=== PATIENT | female | born 1975 | race African-American/Black ===

== ENCOUNTER 2018-05-10 08:35 | Inpatient (IN) | payer MEDICAID ==
[~2018-05-10] VITALS: Ht 167.6 cm; Wt 54.0 kg
[~2018-05-10 08:35] MED LIST: INSLIS SUBCUT; INSU3INS6 SUBCUT; LISI-604 PO
[2018-05-10] MEDS ORDERED: ONDANSETRON HCL 4MG/2ML INJ IV STA (08:53)
[2018-05-10] MEDS ORDERED: FAMOTIDINE 20MG/2ML VIAL IV ONE (09:00)
[2018-05-10] MEDS ORDERED: SODIUM CHLORIDE 0.9% 1000ML BAG (SEPSIS BOLUS) IV ONE (09:00)
[2018-05-10] MEDS ORDERED: MORPHINE SULFATE 2 MG/ML CPJ (NOT FOR IM USE) IV ONE (09:15)
[2018-05-10 09:16] LABS: BASOPHILS % 0.4 % (0.0-2.0); HEMATOCRIT. 44.3 % (36.0-48.0); HEMOGLOBIN. 14.3 g/dL (12.0-16.0); MEAN CORPUSCULAR HEMOGLOBIN 26.7 pg (28.0-32.0); MEAN CORPUSCULAR VOLUME 82.8 fL (81.0-99.0); MEAN PLATELET VOLUME 7.7 fl (7.4-10.4); MONOCYTES % 4.8 % (2.0-8.0); NEUTROPHILS % 82.8 % (40.0-76.0); PLATELET 440 x1000/uL (130-400); RED BLOOD CELL COUNT 5.34 mill/uL (4.2-5.4); RED CELL DISTRIBUTION WIDTH 15.5 % (11.6-14.6)
[2018-05-10 09:23] LABS: CHLORIDE 87 mEq/L (98-107)
[2018-05-10 09:25] LABS: PARTIAL THROMBOPLASTIN TIME 24.3 sec (23.4-31.0); PROTHROMBIN TIME 9.7 sec (9.1-11.1)
[2018-05-10 09:30] LABS: BETA HYDROXYBUTYRATE 8.1 mMol/L (0.0-0.3)
[2018-05-10 09:34] LABS: CREATINE KINASE 84 IU/L (26-192)
[2018-05-10 09:35] LABS: BG BASE EXCESS -9.2 mmol/L (-2.0-2.0); BG CARBOXYHEMOGLOBIN 0.8 % (0.5-1.5); BG DEOXYHEMOGLOBIN 2.3 % (0.0-5.0); BG FRACTION INSPIRED OXYGEN 21; BG HCO3 ACT 14.7 mmol/L (22.0-26.0); BG METHEMOGLOBIN 0.3 % (0.0-1.5); BG OXYGEN SATURATION 97.7 % (92.0-98.5); BG OXYHEMOGLOBIN 96.6 % (94.0-97.0); BG PCO2 27.2 mmHg (35.0-45.0); BG PH 7.352 (7.350-7.450); BG PO2 109.4 mmHg (75.0-100.0); BG SAMPLE SITE RIGHT BRACHIAL; BG VENT MODE ROOM AIR
[2018-05-10 09:37] LABS: HCG SCREEN NEGATIVE
[2018-05-10] MEDS ORDERED: MORPHINE SULFATE 4 MG/ML CPJ (NOT FOR IM USE) IV ONE (09:41)
[2018-05-10] MEDS ORDERED: SODIUM CHLORIDE 0.9% 1,000 ML IV ONE (09:42)
[2018-05-10] MEDS ORDERED: INSULIN REGULAR (DRIP) 100 UNITS in SODIUM CHLORIDE 0.9% 100 ML IV ONE (09:45)
[2018-05-10] MEDS ORDERED: INSULIN REGULAR (DRIP) 100 UNITS in SODIUM CHLORIDE 0.9% 100 ML IV SCH ×2 (09:45→10:15)
[2018-05-10] MEDS ORDERED: SODIUM CHLORIDE 0.45% 1,000 ML IV SCH (10:07)
[2018-05-10] MEDS ORDERED: IPRATROPIUM/ALBUTEROL 0.5-3(2.5)MG/3ML NEB INH PRN (10:15)
[2018-05-10] MEDS ORDERED: HYDROCODONE/ACETAMINOPHEN 5/325MG TABLET PO PRN (10:15)
[2018-05-10] MEDS ORDERED: GUAIFENESIN 200MG/10ML SUGAR FREE UDC PO PRN (10:15)
[2018-05-10] MEDS ORDERED: CLONIDINE 0.1MG TABLET PO PRN (10:15)
[2018-05-10] MEDS ORDERED: DOCUSATE SODIUM 100MG CAPSULE PO PRN (10:15)
[2018-05-10] MEDS ORDERED: DIPHENHYDRAMINE 50MG/ML VIAL IV PRN (10:15)
[2018-05-10] MEDS ORDERED: ONDANSETRON HCL 4MG/2ML INJ IV PRN (10:15)
[2018-05-10] MEDS ORDERED: ACETAMINOPHEN 325MG TABLET PO PRN (10:15)
[2018-05-10] MEDS ORDERED: NA PHOS,M-B/NA PHOS,DI-BA ENEMA 118ML PR PRN (10:15)
[2018-05-10] MEDS ORDERED: MAGNESIUM/ALUMINUM HYDROXIDE/SIMETHICONE 30ML UDC PO PRN (10:15)
[2018-05-10] MEDS ORDERED: LORAZEPAM 2MG/ML CPJ IV PRN (10:15)
[2018-05-10] MEDS: MORPHINE SULFATE 4 MG/ML CPJ (NOT FOR IM USE) IV PRN ×2 (13:54→21:00)
[2018-05-10 15:19] LABS: CLARITY URINE CLEAR (CLEAR); COLOR URINE YELLOW (YELLOW); KETONES URINE 1+ (NEGATIVE); LEUKOCYTE ESTERASE URINE NEGATIVE (NEGATIVE); NITRITE URINE NEGATIVE (NEGATIVE); OCCULT BLOOD URINE 1+ (NEGATIVE); PH URINE 5.5 (4.5-8.0); PROTEIN URINE 3+ (NEGATIVE); SPECIFIC GRAVITY URINE 1.022 (1.005-1.030); UROBILINOGEN URINE 0.2 E.U./dL (0.2-1.0)
[2018-05-10 15:33] LABS: *AMPHETAMINES SCREEN URINE NEGATIVE (NEGATIVE); *BARBITURATES SCREEN URINE NEGATIVE (NEGATIVE); *BENZODIAZEPINES SCREEN URINE NEGATIVE (NEGATIVE); *COCAINE SCREEN URINE NEGATIVE (NEGATIVE); METHADONE URINE SCREEN NEGATIVE (NEGATIVE)
[2018-05-10 15:34] LABS: CANNABINOID URINE SCREEN NEGATIVE (NEGATIVE)
[2018-05-10 15:38] LABS: OPIATES URINE SCREEN PRESUMTIVE POSITIVE (NEGATIVE); PHENCYCLIDINE URINE SCREEN PRESUMTIVE POSITIVE (NEGATIVE)
[2018-05-10] MEDS ORDERED: SODIUM CHLORIDE 0.9% 1,000 ML IV SCH (16:45)
[2018-05-10] MEDS: SODIUM CHLORIDE 0.45% 1,000 ML IV SCH (21:00)
[2018-05-10 22:10] VITALS: BP 134/83
[2018-05-10 22:15] VITALS: BP 126/60
[2018-05-10 22:30] VITALS: BP 139/85
[2018-05-10 23:00] VITALS: BP 135/65
[2018-05-10] MEDS: FLUTICASONE PROPIONATE 50MCG/SPRAY BOTTLE BOTHNSTRLS SCH (23:00)
[2018-05-11] VITALS (17 sets, daily range): BP systolic 106–165; BP diastolic 48–91
[2018-05-11] MEDS ORDERED: LEVOFLOXACIN 500MG PREMIX 100 ML IV NR
[2018-05-11] MEDS ORDERED: INSULIN REGULAR (DRIP) 100 UNITS in SODIUM CHLORIDE 0.9% 100 ML IV SCH (00:24)
[2018-05-11] MEDS ORDERED: BLOOD SUGAR DIAGNOSTIC STRIP TEST SCH (00:30)
[2018-05-11] MEDS ORDERED: DEXTROSE 50% WATER 50ML SYRINGE IV PRN ×3 (00:30→01:45)
[2018-05-11] MEDS ORDERED: INSULIN LISPRO 100 UNITS/ML SUBCUT SCH (01:45)
[2018-05-11] MEDS: METOCLOPRAMIDE HCL 10MG/2ML VIAL IV SCH ×5 (01:55→23:33)
[2018-05-11] MEDS: BLOOD SUGAR DIAGNOSTIC STRIP TEST SCH ×4 (06:12→20:15)
[2018-05-11 06:19] LABS: BASOPHILS % 0.4 % (0.0-2.0); EOSINOPHILS % 0.6 % (0.0-5.0); HEMATOCRIT. 36.1 % (36.0-48.0); HEMOGLOBIN. 11.7 g/dL (12.0-16.0); LYMPHOCYTES % 19.4 % (20.0-50.0); MEAN CORPUSCULAR HEMOGLOBIN 26.2 pg (28.0-32.0); MEAN CORPUSCULAR VOLUME 80.7 fL (81.0-99.0); MEAN PLATELET VOLUME 7.5 fl (7.4-10.4); MONOCYTES % 5.2 % (2.0-8.0); NEUTROPHILS % 74.4 % (40.0-76.0); PLATELET 291 x1000/uL (130-400); RED BLOOD CELL COUNT 4.47 mill/uL (4.2-5.4); RED CELL DISTRIBUTION WIDTH 15.4 % (11.6-14.6)
[2018-05-11] MEDS: SODIUM CHLORIDE 0.45% 1,000 ML IV SCH (06:22)
[2018-05-11 06:23] LABS: CHLORIDE 101 mEq/L (98-107)
[2018-05-11] MEDS: INSULIN LISPRO 100 UNITS/ML SUBCUT SCH ×4 (06:31→20:22)
[2018-05-11 06:36] LABS: LDL CHOLESTEROL 168 mg/dL (5-100)
[2018-05-11 06:37] LABS: HDL CHOLESTEROL 49 mg/dL (40-59); T4 FREE 1.09 ng/dL (0.76-1.46)
[2018-05-11] MEDS: MORPHINE SULFATE 4 MG/ML CPJ (NOT FOR IM USE) IV PRN ×3 (07:16→20:10)
[2018-05-11] MEDS: FLUTICASONE PROPIONATE 50MCG/SPRAY BOTTLE BOTHNSTRLS SCH ×2 (08:57→20:31)
[2018-05-11] MEDS: ENOXAPARIN 30MG/0.3ML SYR SUBCUT SCH (08:58)
[2018-05-11] MEDS: ASPIRIN 81MG EC TABLET PO SCH (08:58)
[2018-05-11] MEDS: AMLODIPINE 5MG TABLET PO SCH ×2 (08:58→20:10)
[2018-05-11] MEDS ORDERED: ATORVASTATIN CALCIUM 20MG TABLET PO SCH (21:00)
[2018-05-11] MEDS ORDERED: LEVOFLOXACIN 250MG PREMIX 50 ML IV SCH (23:00)
[2018-05-12 00:11] VITALS: BP 133/69
[2018-05-12] MEDS: MORPHINE SULFATE 4 MG/ML CPJ (NOT FOR IM USE) IV PRN ×2 (00:27→05:17)
[2018-05-12 04:00] VITALS: BP 143/74
[2018-05-12] MEDS: METOCLOPRAMIDE HCL 10MG/2ML VIAL IV SCH ×2 (05:16→12:38)
[2018-05-12] MEDS: BLOOD SUGAR DIAGNOSTIC STRIP TEST SCH ×2 (06:00→11:54)
[2018-05-12] MEDS: INSULIN LISPRO 100 UNITS/ML SUBCUT SCH ×2 (06:32→11:54)
[2018-05-12 06:45] LABS: BASOPHILS % 0.5 % (0.0-2.0); EOSINOPHILS % 0.6 % (0.0-5.0); HEMATOCRIT. 33.9 % (36.0-48.0); LYMPHOCYTES % 30.7 % (20.0-50.0); MEAN CORPUSCULAR HEMOGLOBIN 26.6 pg (28.0-32.0); MEAN CORPUSCULAR VOLUME 82.1 fL (81.0-99.0); MEAN PLATELET VOLUME 7.9 fl (7.4-10.4); MONOCYTES % 6.6 % (2.0-8.0); NEUTROPHILS % 61.6 % (40.0-76.0); PLATELET 240 x1000/uL (130-400); RED BLOOD CELL COUNT 4.13 mill/uL (4.2-5.4)
[2018-05-12] MEDS ORDERED: INSULIN GLARGINE UD 100 UNITS/ML SYR SUBCUT SCH (07:00)
[2018-05-12] MEDS: ASPIRIN 81MG EC TABLET PO SCH (08:56)
[2018-05-12] MEDS: FLUTICASONE PROPIONATE 50MCG/SPRAY BOTTLE BOTHNSTRLS SCH (08:56)
[2018-05-12] MEDS: ENOXAPARIN 30MG/0.3ML SYR SUBCUT SCH (08:56)
[2018-05-12] MEDS: AMLODIPINE 5MG TABLET PO SCH (09:00)
[2018-05-12 10:13] VITALS: BP 121/78
== END 2018-05-12 14:35 | disposition home or self-care (01) | DRG 380 ==
LOC: ER 08:47 → CVICU 09:43 → EDBEDREQ 09:45 → EDBEDREQSVC 09:45 → EDBEDREQTM 09:45 → ENRESERV 17:30 → CANRESERV 17:30 → ENRESERV 21:02 → 7WST 05-11 11:15
PROVIDERS: ADMIT Internal Medicine; ATTEND Internal Medicine
PROC: 0JBR0ZZ Excision of Left Foot Subcutaneous Tissue and Fascia, Open Approach (ICD-10-PCS; principal; 2018-05-11)
DX: E10.621 Type 1 diabetes mellitus with foot ulcer (principal); L97.529 Non-pressure chronic ulcer of other part of left foot with unspecified severity; N17.0 Acute kidney failure with tubular necrosis; E10.10 Type 1 diabetes mellitus with ketoacidosis without coma; E46 Unspecified protein-calorie malnutrition; R65.10 Systemic inflammatory response syndrome (SIRS) of non-infectious origin without acute organ dysfunction; K31.84 Gastroparesis; E10.43 Type 1 diabetes mellitus with diabetic autonomic (poly)neuropathy; E87.5 Hyperkalemia; E87.1 Hypo-osmolality and hyponatremia; D64.9 Anemia, unspecified; E78.00 Pure hypercholesterolemia, unspecified; E78.5 Hyperlipidemia, unspecified; E86.0 Dehydration; K30 Functional dyspepsia; K59.00 Constipation, unspecified; F41.9 Anxiety disorder, unspecified; F16.10 Hallucinogen abuse, uncomplicated; F17.210 Nicotine dependence, cigarettes, uncomplicated; I10 Essential (primary) hypertension; Z79.4 Long term (current) use of insulin; Z68.1 Body mass index [BMI] 19.9 or less, adult; Z79.899 Other long term (current) drug therapy; Z82.49 Family history of ischemic heart disease and other diseases of the circulatory system; Z83.3 Family history of diabetes mellitus; Z91.14 Patient's other noncompliance with medication regimen; Z91.19 Patient's noncompliance with other medical treatment and regimen
CPT/HCPCS: 36415; 36600; 71045; 73630; 74176; 76770; 80048; 80061; 80305; 82010; 82375; 82550; 82553; 82805; 82962; 83605; 83735; 83880; 83930; 83935; 84145; 84439; 84443; 84484; 84703; 87804; 93005; 93306; 96374; 96375; 99285; J1650; J1815; J1956; J2060; J2270; J2405; J2765; J3490; J7030; J7050; A4315

== ENCOUNTER 2018-08-18 19:14 | Inpatient (IN) | payer MEDICAID ==
[~2018-08-18] VITALS: Ht 165.1 cm; Wt 54.4 kg
[2018-08-18] MEDS ORDERED: ONDANSETRON HCL 4MG/2ML INJ IV STA (20:03)
[2018-08-18] MEDS ORDERED: SODIUM CHLORIDE 0.9% 1000ML BAG (SEPSIS BOLUS) IV ONE (20:15)
[2018-08-18] MEDS ORDERED: FAMOTIDINE 20MG/2ML VIAL IV ONE (20:15)
[2018-08-18] MEDS ORDERED: LORAZEPAM 2MG/ML CPJ IV ONE (20:45)
[2018-08-18 20:56] LABS: BG BASE EXCESS -18.6 mmol/L (-2.0-2.0); BG CARBOXYHEMOGLOBIN 0.6 % (0.5-1.5); BG FRACTION INSPIRED OXYGEN 21; BG HCO3 ACT 7.2 mmol/L (22.0-26.0); BG METHEMOGLOBIN 0.3 % (0.0-1.5); BG OXYHEMOGLOBIN 97.1 % (94.0-97.0); BG PCO2 18.9 mmHg (35.0-45.0); BG PO2 128.4 mmHg (75.0-100.0); BG SAMPLE SITE RIGHT RADIAL; BG VENT MODE ROOM AIR
[2018-08-18] MEDS ORDERED: INSULIN REGULAR (DRIP) 100 UNITS in SODIUM CHLORIDE 0.9% 100 ML IV ONE ×3 (21:00→22:30)
[2018-08-18 21:10] LABS: MEAN CORPUSCULAR HEMOGLOBIN 28.2 pg (28.0-32.0); MEAN CORPUSCULAR VOLUME 87.6 fL (81.0-99.0); PLATELET 74 x1000/uL (130-400); RED BLOOD CELL COUNT 1.07 mill/uL (4.2-5.4); RED CELL DISTRIBUTION WIDTH 13.2 % (11.6-14.6)
[2018-08-18 21:17] LABS: CHLORIDE 141 mEq/L (98-107)
[2018-08-18 21:21] LABS: HEMATOCRIT. 9.3 % (36.0-48.0)
[2018-08-18 21:22] LABS: ETHANOL BLOOD < 10 mg/dL
[2018-08-18 21:27] LABS: BETA HYDROXYBUTYRATE 1.6 mMol/L (0.0-0.3)
[2018-08-18 21:29] LABS: INR 3.3; PROTHROMBIN TIME 32.6 sec (9.6-11.0)
[2018-08-18 21:41] LABS: HCG SCREEN NEGATIVE
[2018-08-18 21:54] LABS: HEMATOCRIT. 44.8 % (36.0-48.0); HEMOGLOBIN. 13.9 g/dL (12.0-16.0); MEAN CORPUSCULAR HEMOGLOBIN 27.2 pg (28.0-32.0); MEAN CORPUSCULAR VOLUME 87.7 fL (81.0-99.0); MEAN PLATELET VOLUME 8.6 fl (7.4-10.4); PLATELET 307 x1000/uL (130-400); RED BLOOD CELL COUNT 5.11 mill/uL (4.2-5.4); RED CELL DISTRIBUTION WIDTH 13.8 % (11.6-14.6)
[2018-08-18] MEDS ORDERED: MAGNESIUM 2 G PREMIX 50 ML IV ONE (22:00)
[2018-08-18] MEDS ORDERED: KCL 20MEQ/100ML PREMIX 100 ML IV ONE (22:00)
[2018-08-18] MEDS ORDERED: POTASSIUM CHLORIDE 20MEQ TABLET SR PO ONE (22:00)
[2018-08-18 22:04] LABS: PLATELET ESTIMATE DECREASED
[2018-08-18 22:12] LABS: CHLORIDE 88 mEq/L (98-107)
[2018-08-18 22:15] LABS: ETHANOL BLOOD < 10 mg/dL
[2018-08-18 22:16] LABS: PROTHROMBIN TIME 10.3 sec (9.6-11.0)
[2018-08-18 22:16] LABS: PLATELET ESTIMATE NORMAL
[2018-08-18 22:19] LABS: BETA HYDROXYBUTYRATE 8.9 mMol/L (0.0-0.3)
[2018-08-18 22:20] LABS: TOTAL IRON BINDING CAPACITY 285 ug/dL (250-450)
[2018-08-18] MEDS ORDERED: INSULIN REGULAR (HUMULIN R) 300UNITS/3ML IV ONE (22:30)
[2018-08-18] MEDS ORDERED: CALCIUM CHLORIDE 1GM/10ML SYR IV ONE (22:30)
[2018-08-18] MEDS ORDERED: SODIUM POLYSTYRENE SULFONATE 15 G/60 ML BOT PO ONE (22:30)
[2018-08-18] MEDS ORDERED: DEXTROSE 50% WATER 50ML SYRINGE IV ONE (22:30)
[2018-08-18] MEDS ORDERED: SODIUM BICARBONATE 8.4% 1 MEQ/ML 50ML SYR IV ONE (22:30)
[2018-08-18] MEDS ORDERED: ALBUTEROL (0.083%) 2.5MG/3ML NEB HHN ONE (22:30)
[2018-08-18 23:01] LABS: HEMATOCRIT 37.8 % (36.0-48.0); HEMOGLOBIN 11.9 g/dL (12.0-16.0); MEAN CORPUSCULAR HEMOGLOBIN 27.1 pg (28.0-32.0); MEAN CORPUSCULAR VOLUME 86.3 fL (81.0-99.0); PLATELET 261 x1000/uL (130-400); RED BLOOD CELL COUNT 4.38 mill/uL (4.2-5.4); RED CELL DISTRIBUTION WIDTH 13.9 % (11.6-14.6)
[2018-08-18 23:02] LABS: CLARITY URINE CLEAR (CLEAR); COLOR URINE YELLOW (YELLOW); KETONES URINE 1+ (NEGATIVE); LEUKOCYTE ESTERASE URINE NEGATIVE (NEGATIVE); NITRITE URINE NEGATIVE (NEGATIVE); OCCULT BLOOD URINE NEGATIVE (NEGATIVE); PROTEIN URINE 2+ (NEGATIVE); SPECIFIC GRAVITY URINE 1.022 (1.005-1.030); UROBILINOGEN URINE 0.2 E.U./dL (0.2-1.0)
[2018-08-18 23:17] LABS: *AMPHETAMINES SCREEN URINE NEGATIVE (NEGATIVE); *BARBITURATES SCREEN URINE NEGATIVE (NEGATIVE); *BENZODIAZEPINES SCREEN URINE NEGATIVE (NEGATIVE); *COCAINE SCREEN URINE NEGATIVE (NEGATIVE); CANNABINOID URINE SCREEN NEGATIVE (NEGATIVE); METHADONE URINE SCREEN NEGATIVE (NEGATIVE); OPIATES URINE SCREEN NEGATIVE (NEGATIVE)
[2018-08-18 23:20] LABS: PHENCYCLIDINE URINE SCREEN PRESUMTIVE POSITIVE (NEGATIVE)
[2018-08-18 23:42] VITALS: BP 179/94
[2018-08-18 23:45] VITALS: BP_SYST 179; BP_SYST 192; BP_DIAS 100; BP_DIAS 94
[2018-08-19] VITALS (61 sets, daily range): BP systolic 111–206; BP diastolic 53–97
[2018-08-19] MEDS ORDERED: SODIUM CHLORIDE 0.9% 1,000 ML IV SCH (00:04)
[2018-08-19] MEDS ORDERED: ACETAMINOPHEN 650MG SUPP PR PRN (00:15)
[2018-08-19] MEDS ORDERED: ONDANSETRON HCL 4MG/2ML INJ IV PRN (00:15)
[2018-08-19] MEDS ORDERED: IPRATROPIUM/ALBUTEROL 0.5-3(2.5)MG/3ML NEB INH PRN (00:15)
[2018-08-19] MEDS ORDERED: PIPERACILLIN/TAZ 3.375G PREMIX 50 ML IV SCH (00:15)
[2018-08-19] MEDS ORDERED: LORAZEPAM 2MG/ML CPJ IV PRN (00:15)
[2018-08-19] MEDS ORDERED: INSULIN REGULAR (DRIP) 100 UNITS in SODIUM CHLORIDE 0.9% 100 ML IV SCH (00:15)
[2018-08-19] MEDS: HYDRALAZINE 20MG/ML VIAL IV PRN ×3 (00:28→15:54)
[2018-08-19] MEDS ORDERED: DEXT 5%/0.9% NACL KCL 20MEQ/L 1,000 ML IV PRN (01:15)
[2018-08-19] MEDS ORDERED: DEXT 5%/0.9% NACL 1,000 ML IV PRN (01:15)
[2018-08-19] MEDS ORDERED: SODIUM CHL 0.9% + KCL 20MEQ/L 1,000 ML IV PRN (01:15)
[2018-08-19] MEDS ORDERED: DEXTROSE 50% WATER 50ML SYRINGE IV PRN ×3 (02:00→10:30)
[2018-08-19] MEDS: BLOOD SUGAR DIAGNOSTIC STRIP TEST SCH ×13 (02:12→20:02)
[2018-08-19] MEDS: PIPERACILLIN/TAZ 2.25G PREMIX 50 ML IV SCH ×4 (03:21→20:04)
[2018-08-19] MEDS: INSULIN REGULAR (DRIP) 100 UNITS in SODIUM CHLORIDE 0.9% 100 ML IV SCH ×2 (03:36→08:42)
[2018-08-19 06:01] LABS: PHOSPHORUS 3.3 mg/dL (2.5-4.9)
[2018-08-19 06:07] LABS: CREATINE KINASE MB FRACTION 11.1 ng/mL (0.5-3.6)
[2018-08-19] MEDS ORDERED: ENOXAPARIN 40MG/0.4ML SYR SUBCUT SCH (09:00)
[2018-08-19] MEDS: ENOXAPARIN 30MG/0.3ML SYR SUBCUT SCH (09:26)
[2018-08-19] MEDS ORDERED: INSULIN GLARGINE UD 100 UNITS/ML SYR SUBCUT SCH (10:45)
[2018-08-19] MEDS: DEXT 5%/0.45% NACL KCL 20MEQ/L 1,000 ML IV SCH (15:27)
[2018-08-19 15:35] LABS: CREATINE KINASE MB FRACTION 18.2 ng/mL (0.5-3.6)
[2018-08-19] MEDS: INSULIN LISPRO 100 UNITS/ML SUBCUT SCH ×2 (17:30→20:04)
[2018-08-19] MEDS ORDERED: METOPROLOL TARTRATE 50MG TABLET PO NR (18:15)
[2018-08-19] MEDS ORDERED: AMLODIPINE 2.5MG TABLET PO SCH (21:00)
[2018-08-19] MEDS: INSULIN GLARGINE UD 100 UNITS/ML SYR SUBCUT SCH (21:13)
[2018-08-20 00:18] VITALS: BP 136/77
[2018-08-20] MEDS: PIPERACILLIN/TAZ 2.25G PREMIX 50 ML IV SCH ×4 (03:26→20:31)
[2018-08-20] MEDS: DEXT 5%/0.45% NACL KCL 20MEQ/L 1,000 ML IV SCH (03:26)
[2018-08-20 04:00] VITALS: BP 114/70
[2018-08-20 07:23] LABS: BASOPHILS % 0.4 % (0.0-2.0); EOSINOPHILS % 0.1 % (0.0-5.0); HEMATOCRIT. 37.4 % (36.0-48.0); HEMOGLOBIN. 12.2 g/dL (12.0-16.0); LYMPHOCYTES % 14.7 % (20.0-50.0); MEAN CORPUSCULAR HEMOGLOBIN 26.7 pg (28.0-32.0); MEAN CORPUSCULAR VOLUME 81.6 fL (81.0-99.0); MEAN PLATELET VOLUME 8.2 fl (7.4-10.4); NEUTROPHILS % 80.8 % (40.0-76.0); PLATELET 288 x1000/uL (130-400); RED BLOOD CELL COUNT 4.58 mill/uL (4.2-5.4); RED CELL DISTRIBUTION WIDTH 13.8 % (11.6-14.6)
[2018-08-20] MEDS: BLOOD SUGAR DIAGNOSTIC STRIP TEST SCH ×4 (07:23→20:22)
[2018-08-20 07:47] LABS: PHOSPHORUS 2.7 mg/dL (2.5-4.9)
[2018-08-20] MEDS ORDERED: METOPROLOL TARTRATE 50MG TABLET PO SCH (09:00)
[2018-08-20] MEDS: ENOXAPARIN 30MG/0.3ML SYR SUBCUT SCH (09:30)
[2018-08-20] MEDS: ASPIRIN 81MG TABLET PO SCH (09:30)
[2018-08-20] MEDS: INSULIN LISPRO 100 UNITS/ML SUBCUT SCH ×4 (09:32→20:32)
[2018-08-20] MEDS: INSULIN GLARGINE UD 100 UNITS/ML SYR SUBCUT SCH ×2 (09:33→21:24)
[2018-08-20] MEDS: SODIUM CHLORIDE 0.45% 1,000 ML IV SCH ×2 (12:43→22:58)
[2018-08-20] MEDS: HYDROCODONE/ACETAMINOPHEN 5/325MG TABLET PO PRN ×2 (14:53→21:24)
[2018-08-20 14:55] LABS: PROTHROMBIN TIME 10.1 sec (9.6-11.0)
[2018-08-20 20:00] VITALS: BP 131/70
[2018-08-20] MEDS ORDERED: ACETAMINOPHEN 325MG TABLET PO PRN (20:45)
[2018-08-20] MEDS ORDERED: AMLODIPINE 5MG TABLET PO SCH (21:00)
[2018-08-21] VITALS: BP 140/75
[2018-08-21] MEDS: PIPERACILLIN/TAZ 2.25G PREMIX 50 ML IV SCH ×3 (02:49→15:00)
[2018-08-21 04:00] VITALS: BP 121/66
[2018-08-21 04:16] LABS: HIV SCREEN 4G Non Reactive (Non Reactive)
[2018-08-21] MEDS: HYDROCODONE/ACETAMINOPHEN 5/325MG TABLET PO PRN ×2 (05:48→11:23)
[2018-08-21 06:03] LABS: BASOPHILS % 0.5 % (0.0-2.0); EOSINOPHILS % 0.8 % (0.0-5.0); HEMATOCRIT. 33.1 % (36.0-48.0); HEMOGLOBIN. 11.1 g/dL (12.0-16.0); MEAN CORPUSCULAR HEMOGLOBIN 27.5 pg (28.0-32.0); MEAN CORPUSCULAR VOLUME 82.1 fL (81.0-99.0); MEAN PLATELET VOLUME 7.9 fl (7.4-10.4); MONOCYTES % 4.8 % (2.0-8.0); NEUTROPHILS % 57.9 % (40.0-76.0); PLATELET 230 x1000/uL (130-400); RED BLOOD CELL COUNT 4.03 mill/uL (4.2-5.4); RED CELL DISTRIBUTION WIDTH 13.8 % (11.6-14.6)
[2018-08-21] MEDS: BLOOD SUGAR DIAGNOSTIC STRIP TEST SCH ×3 (07:02→17:40)
[2018-08-21 07:24] LABS: PHOSPHORUS 2.5 mg/dL (2.5-4.9)
[2018-08-21 08:00] VITALS: BP 127/68
[2018-08-21] MEDS: INSULIN LISPRO 100 UNITS/ML SUBCUT SCH ×3 (08:10→18:10)
[2018-08-21] MEDS ORDERED: ENOXAPARIN 40MG/0.4ML SYR SUBCUT SCH (09:00)
[2018-08-21 09:08] LABS: ABSOLUTE MONOCYTES 0.6 x10E3/uL (0.1-0.9); ABSOLUTE NEUTROPHILS 10.9 x10E3/uL (1.4-7.0); BASOPHILS 0 % (Not Estab.); HEMATOCRIT 36.1 % (34.0-46.6); HEMOGLOBIN 11.9 g/dL (11.1-15.9); IMMATURE GRANULOCYTES 0 % (Not Estab.); LYMPHOCYTES 15 % (Not Estab.); MEAN CORPUSCULAR HEMOGLOBIN 26.9 pg (26.6-33.0); MEAN CORPUSCULAR VOLUME 82 fL (79-97); MONOCYTES 4 % (Not Estab.); NEUTROPHILS 81 % (Not Estab.); PLATELETS 286 x10E3/uL (150-450); RBC 4.43 x10E6/uL (3.77-5.28); RED CELL DISTRIBUTION WIDTH 14.2 % (12.3-15.4); WBC 13.5 x10E3/uL (3.4-10.8)
[2018-08-21] MEDS: ASPIRIN 81MG TABLET PO SCH (09:28)
[2018-08-21] MEDS: SODIUM CHLORIDE 0.45% 1,000 ML IV SCH (09:44)
[2018-08-21] MEDS ORDERED: INSULIN GLARGINE UD 100 UNITS/ML SYR SUBCUT SCH (10:00)
[2018-08-21] MEDS ORDERED: SODIUM CHLORIDE 0.9% 1,000 ML IV SCH (11:15)
[2018-08-21 12:00] VITALS: BP 125/68
[2018-08-21 13:16] LABS: % CD 3 POS. LYMPHOCYTES 85.1 % (57.5-86.2); % CD 4 POS. LYMPHOCYTES 50.9 % (30.8-58.5); % CD 8 POS. LYMPH 35.4 % (12.0-35.5); ABSOLUTE CD 3 1702 /uL (622-2402); ABSOLUTE CD 4 HELPER 1018 /uL (359-1519); ABSOLUTE CD 8 SUPPRESSOR 708 /uL (109-897); CD4/CD8 RATIO 1.44 (0.92-3.72)
[2018-08-21] MEDS ORDERED: LANTUSUD SUBCUT (14:14)
[2018-08-21] MEDS ORDERED: AMLO5TAB88 PO (14:14)
[2018-08-21 16:00] VITALS: BP 123/68
[2018-08-21 18:59] VITALS: BP 128/68
== END 2018-08-21 22:00 | disposition home or self-care (01) | DRG 420 ==
LOC: ER 20:16 → MICUSO 21:42 → EDBEDREQTM 21:44 → EDBEDREQ 21:44 → ENRESERV 22:52 → MICUNO 08-19 07:10 → 7WST 08-19 20:33
PROVIDERS: ADMIT Internal Medicine; ATTEND Internal Medicine
PROC: 0JBR0ZZ Excision of Left Foot Subcutaneous Tissue and Fascia, Open Approach (ICD-10-PCS; principal; 2018-08-20)
DX: E10.10 Type 1 diabetes mellitus with ketoacidosis without coma (principal); N17.0 Acute kidney failure with tubular necrosis; E44.0 Moderate protein-calorie malnutrition; K31.84 Gastroparesis; B20 Human immunodeficiency virus [HIV] disease; E87.5 Hyperkalemia; E10.40 Type 1 diabetes mellitus with diabetic neuropathy, unspecified; E10.21 Type 1 diabetes mellitus with diabetic nephropathy; N18.3 Chronic kidney disease, stage 3 (moderate); E10.22 Type 1 diabetes mellitus with diabetic chronic kidney disease; E87.8 Other disorders of electrolyte and fluid balance, not elsewhere classified; E87.1 Hypo-osmolality and hyponatremia; Z91.19 Patient's noncompliance with other medical treatment and regimen; E10.319 Type 1 diabetes mellitus with unspecified diabetic retinopathy without macular edema; E86.0 Dehydration; E87.6 Hypokalemia; I12.9 Hypertensive chronic kidney disease with stage 1 through stage 4 chronic kidney disease, or unspecified chronic kidney disease; E10.621 Type 1 diabetes mellitus with foot ulcer; F17.210 Nicotine dependence, cigarettes, uncomplicated; E10.43 Type 1 diabetes mellitus with diabetic autonomic (poly)neuropathy; E78.5 Hyperlipidemia, unspecified; E10.42 Type 1 diabetes mellitus with diabetic polyneuropathy; F16.10 Hallucinogen abuse, uncomplicated; L97.429 Non-pressure chronic ulcer of left heel and midfoot with unspecified severity; Z91.14 Patient's other noncompliance with medication regimen; Z79.4 Long term (current) use of insulin; Z71.6 Tobacco abuse counseling; Z82.49 Family history of ischemic heart disease and other diseases of the circulatory system; Z68.20 Body mass index [BMI] 20.0-20.9, adult
CPT/HCPCS: 36415; 36600; 71045; 80048; 80061; 80305; 80320; 82010; 82375; 82550; 82553; 82805; 82962; 83036; 83540; 83550; 83605; 83735; 83880; 84100; 84145; 84439; 84443; 84484; 84703; 85027; 85044; 86359; 86360; 86850; 86900; 86920; 87389; 93005; 93970; 96374; 96375; 99291; J0360; J1650; J1815; J2060; J2405; J2543; J3475; J3480; J3490; J7030; J7040; J7050; G0480

== ENCOUNTER 2018-10-01 01:45 | Emergency (ER) | payer MEDICAID ==
[~2018-10-01] VITALS: Ht 172.7 cm; Wt 53.0 kg
[~2018-10-01 01:45] MED LIST changes: +AMLO5TAB88 PO; -INSU3INS6 SUBCUT; +LANTUSUD SUBCUT; -LISI-604 PO
[2018-10-01] MEDS ORDERED: SODIUM CHLORIDE 0.9% 1,000 ML IV ONE (02:05)
[2018-10-01 02:23] LABS: BASOPHILS % 1.4 % (0.0-2.0); EOSINOPHILS % 1.4 % (0.0-5.0); HEMATOCRIT. 38.2 % (36.0-48.0); HEMOGLOBIN. 12.8 g/dL (12.0-16.0); MEAN CORPUSCULAR HEMOGLOBIN 27.3 pg (28.0-32.0); MEAN CORPUSCULAR VOLUME 81.4 fL (81.0-99.0); MEAN PLATELET VOLUME 7.6 fl (7.4-10.4); MONOCYTES % 6.7 % (2.0-8.0); NEUTROPHILS % 47.5 % (40.0-76.0); PLATELET 325 x1000/uL (130-400); RED BLOOD CELL COUNT 4.69 mill/uL (4.2-5.4); RED CELL DISTRIBUTION WIDTH 14.1 % (11.6-14.6)
[2018-10-01 02:28] LABS: CHLORIDE 101 mEq/L (98-107)
[2018-10-01 02:31] LABS: ETHANOL BLOOD < 10 mg/dL
[2018-10-01 02:35] LABS: BETA HYDROXYBUTYRATE 0.1 mMol/L (0.0-0.3)
[2018-10-01 02:36] LABS: CREATINE KINASE 184 IU/L (26-192)
[2018-10-01 04:24] LABS: CLARITY URINE CLOUDY (CLEAR); COLOR URINE YELLOW (YELLOW); KETONES URINE NEGATIVE (NEGATIVE); LEUKOCYTE ESTERASE URINE 2+ (NEGATIVE); NITRITE URINE POSITIVE (NEGATIVE); OCCULT BLOOD URINE 1+ (NEGATIVE); PROTEIN URINE 3+ (NEGATIVE); UROBILINOGEN URINE 0.2 E.U./dL (0.2-1.0)
[2018-10-01] MEDS ORDERED: CEFTRIAXONE 1 G PREMIX 50 ML IV NR (04:45)
[2018-10-01 04:56] LABS: *BARBITURATES SCREEN URINE NEGATIVE (NEGATIVE); *BENZODIAZEPINES SCREEN URINE NEGATIVE (NEGATIVE)
[2018-10-01 04:57] LABS: *COCAINE SCREEN URINE NEGATIVE (NEGATIVE); CANNABINOID URINE SCREEN NEGATIVE (NEGATIVE); METHADONE URINE SCREEN NEGATIVE (NEGATIVE); OPIATES URINE SCREEN NEGATIVE (NEGATIVE); PHENCYCLIDINE URINE SCREEN NEGATIVE (NEGATIVE)
[2018-10-01 05:05] LABS: *AMPHETAMINES SCREEN URINE PRESUMTIVE POSITIVE (NEGATIVE)
[2018-10-01 06:37] VITALS: BP 196/100
== END 2018-10-01 07:44 | disposition home or self-care (01) ==
LOC: ER 01:45
DX: N39.0 Urinary tract infection, site not specified (principal); M79.605 Pain in left leg; M79.604 Pain in right leg; E11.649 Type 2 diabetes mellitus with hypoglycemia without coma; Z79.4 Long term (current) use of insulin
CPT/HCPCS: 36415; 70450; 71045; 80053; 80305; 80320; 81003; 81025; 82010; 82550; 82962; 83605; 83690; 85025; 87077; 87086; 87186; 93970; 96361; 96365; 99284; J0696; J7030; Z7610; G0480

== ENCOUNTER 2019-05-29 21:24 | Inpatient (IN) | payer MEDICAID ==
[~2019-05-29] VITALS: Ht 172.7 cm; Wt 57.7 kg
[2019-05-29] MEDS ORDERED: PIPERACILLIN/TAZ 3.375G PREMIX 50 ML IV ONE (23:15)
[2019-05-29] MEDS ORDERED: VANCOMYCIN 1 G PREMIX 200 ML IV ONE (23:15)
[2019-05-29] MEDS ORDERED: SODIUM CHLORIDE 0.9% 1000ML BAG (SEPSIS BOLUS) IV ONE (23:15)
[2019-05-29 23:52] LABS: BASOPHILS % 0.3 % (0.0-2.0); EOSINOPHILS % 1.1 % (0.0-5.0); HEMATOCRIT. 29.7 % (36.0-48.0); LYMPHOCYTES % 9.7 % (20.0-50.0); MEAN CORPUSCULAR HEMOGLOBIN 27.6 pg (28.0-32.0); MEAN CORPUSCULAR VOLUME 82.1 fL (81.0-99.0); MEAN PLATELET VOLUME 7.8 fl (7.4-10.4); MONOCYTES % 5.9 % (2.0-8.0); PLATELET 443 x1000/uL (130-400); RED BLOOD CELL COUNT 3.62 mill/uL (4.2-5.4); RED CELL DISTRIBUTION WIDTH 13.2 % (11.6-14.6)
[2019-05-29 23:53] LABS: CLARITY URINE CLEAR (CLEAR); COLOR URINE YELLOW (YELLOW); KETONES URINE NEGATIVE (NEGATIVE); LEUKOCYTE ESTERASE URINE TRACE (NEGATIVE); NITRITE URINE NEGATIVE (NEGATIVE); OCCULT BLOOD URINE 1+ (NEGATIVE); PH URINE 6.5 (4.5-8.0); PROTEIN URINE 3+ (NEGATIVE); SPECIFIC GRAVITY URINE 1.015 (1.005-1.030); UROBILINOGEN URINE 0.2 E.U./dL (0.2-1.0)
[2019-05-29 23:56] LABS: CHLORIDE 100 mEq/L (98-107)
[2019-05-30] LABS: INR 0.9; PROTHROMBIN TIME 9.4 sec (9.6-11.0)
[2019-05-30 00:11] LABS: BETA HYDROXYBUTYRATE 0.1 mMol/L (0.0-0.3); HCG SCREEN NEGATIVE
[2019-05-30 00:16] LABS: *BARBITURATES SCREEN URINE NEGATIVE (NEGATIVE)
[2019-05-30 00:17] LABS: *BENZODIAZEPINES SCREEN URINE NEGATIVE (NEGATIVE); *COCAINE SCREEN URINE NEGATIVE (NEGATIVE); CANNABINOID URINE SCREEN NEGATIVE (NEGATIVE); METHADONE URINE SCREEN NEGATIVE (NEGATIVE); PHENCYCLIDINE URINE SCREEN NEGATIVE (NEGATIVE)
[2019-05-30 00:23] LABS: *AMPHETAMINES SCREEN URINE NEGATIVE (NEGATIVE)
[2019-05-30 00:24] LABS: OPIATES URINE SCREEN PRESUMTIVE POSITIVE (NEGATIVE)
[2019-05-30] MEDS ORDERED: HYDROCODONE/ACETAMINOPHEN 5/325MG TABLET PO ONE (02:00)
[2019-05-30] MEDS ORDERED: ENOXAPARIN 40MG/0.4ML SYR SUBCUT SCH (08:15)
[2019-05-30] MEDS ORDERED: IPRATROPIUM/ALBUTEROL 0.5-3(2.5)MG/3ML NEB HHN PRN (08:15)
[2019-05-30] MEDS ORDERED: DIPHENHYDRAMINE 50MG/ML VIAL IV PRN (08:15)
[2019-05-30] MEDS ORDERED: ACETAMINOPHEN 325MG TABLET PO PRN (08:15)
[2019-05-30] MEDS ORDERED: PIPERACILLIN/TAZ 3.375G PREMIX 50 ML IV SCH (08:15)
[2019-05-30 08:30] VITALS: BP 140/62
[2019-05-30] MEDS: SODIUM CHLORIDE 0.9% 1,000 ML IV SCH (09:00)
[2019-05-30] MEDS: ENOXAPARIN 30MG/0.3ML SYR SUBCUT SCH (09:00)
[2019-05-30] MEDS ORDERED: INSULIN REGULAR (HUMULIN R) UD 100 UNITS/ML SYR SUBCUT SCH (10:00)
[2019-05-30] MEDS: PIPERACILLIN/TAZOBACTAM 2.25 G in DEXTROSE 5% WATER 50 ML IV SCH ×2 (10:28→21:13)
[2019-05-30] MEDS ORDERED: DEXTROSE 50% WATER 50ML SYRINGE IV PRN ×2 (10:30)
[2019-05-30] MEDS ORDERED: VANCOMYCIN 500 MG PREMIX 100 ML IV SCH (12:00)
[2019-05-30] MEDS: BLOOD SUGAR DIAGNOSTIC STRIP TEST SCH ×3 (12:14→20:55)
[2019-05-30 12:30] VITALS: BP 168/90
[2019-05-30] MEDS: INSULIN LISPRO 100 UNITS/ML SUBCUT SCH ×3 (13:01→21:13)
[2019-05-30] MEDS ORDERED: INSULIN LISPRO 100 UNITS/ML SUBCUT SCH (14:00)
[2019-05-30 16:13] LABS: PHOSPHORUS 3.8 mg/dL (2.5-4.9)
[2019-05-30 16:14] LABS: CREATINE KINASE 94 IU/L (26-192)
[2019-05-30 16:33] VITALS: BP 157/83
[2019-05-30 20:00] VITALS: BP 176/94
[2019-05-30] MEDS: AMLODIPINE 2.5MG TABLET PO SCH (20:50)
[2019-05-30] MEDS ORDERED: ZOLPIDEM TARTRATE 5MG TABLET PO PRN (21:00)
[2019-05-30] MEDS: MORPHINE SULFATE 2 MG/ML CPJ (NOT FOR IM USE) IV PRN (21:39)
[2019-05-30] MEDS: INSULIN GLARGINE UD 100 UNITS/ML SYR SUBCUT SCH (21:41)
[2019-05-31] VITALS: BP 178/86
[2019-05-31] MEDS: CLONIDINE 0.1MG TABLET PO PRN ×2 (00:17→16:09)
[2019-05-31] MEDS: MORPHINE SULFATE 2 MG/ML CPJ (NOT FOR IM USE) IV PRN ×4 (03:33→21:37)
[2019-05-31 04:00] VITALS: BP 142/72
[2019-05-31] MEDS: SODIUM CHLORIDE 0.9% 1,000 ML IV SCH (05:00)
[2019-05-31] MEDS: BLOOD SUGAR DIAGNOSTIC STRIP TEST SCH ×4 (06:46→20:48)
[2019-05-31] MEDS ORDERED: LIDOCAINE HCL 1% 20ML VIAL (Pyxis) INJ ONE (07:17)
[2019-05-31] MEDS ORDERED: BACITRACIN 50,000 UNITS/VIAL ONE (07:18)
[2019-05-31] MEDS ORDERED: BUPIVACAINE HCL/PF 0.5% (5MG/ML) 10ML ONE (07:18)
[2019-05-31 08:00] VITALS: BP 158/76
[2019-05-31] MEDS: ENOXAPARIN 30MG/0.3ML SYR SUBCUT SCH (08:08)
[2019-05-31] MEDS: AMLODIPINE 2.5MG TABLET PO SCH ×2 (08:08→20:36)
[2019-05-31] MEDS: PIPERACILLIN/TAZOBACTAM 2.25 G in DEXTROSE 5% WATER 50 ML IV SCH ×2 (08:16→20:34)
[2019-05-31] MEDS: INSULIN LISPRO 100 UNITS/ML SUBCUT SCH ×4 (08:17→21:32)
[2019-05-31] MEDS ORDERED: ROPIVACAINE HCL 10MG/ML 20 ML VIAL EPI ONE (08:53)
[2019-05-31] MEDS ORDERED: MIDAZOLAM HCL 5 MG/5 ML VIAL ONE (09:00)
[2019-05-31 12:00] VITALS: BP 178/86
[2019-05-31 13:50] LABS: BASOPHILS % 0.6 % (0.0-2.0); EOSINOPHILS % 1.4 % (0.0-5.0); HEMATOCRIT. 30.1 % (36.0-48.0); HEMOGLOBIN. 9.9 g/dL (12.0-16.0); LYMPHOCYTES % 21.6 % (20.0-50.0); MEAN CORPUSCULAR HEMOGLOBIN 27.3 pg (28.0-32.0); MEAN CORPUSCULAR VOLUME 82.6 fL (81.0-99.0); MEAN PLATELET VOLUME 7.6 fl (7.4-10.4); MONOCYTES % 7.1 % (2.0-8.0); NEUTROPHILS % 69.3 % (40.0-76.0); PLATELET 494 x1000/uL (130-400); RED BLOOD CELL COUNT 3.64 mill/uL (4.2-5.4); RED CELL DISTRIBUTION WIDTH 13.1 % (11.6-14.6)
[2019-05-31 13:56] LABS: CHLORIDE 102 mEq/L (98-107)
[2019-05-31 14:04] LABS: LDL CHOLESTEROL 148 mg/dL (5-100)
[2019-05-31 14:05] LABS: HDL CHOLESTEROL 42 mg/dL (40-59)
[2019-05-31 16:00] VITALS: BP 169/85
[2019-05-31 20:00] VITALS: BP 167/92
[2019-05-31] MEDS: INSULIN GLARGINE UD 100 UNITS/ML SYR SUBCUT SCH (21:30)
[2019-06-01 00:14] VITALS: BP 136/65
[2019-06-01] MEDS: MORPHINE SULFATE 2 MG/ML CPJ (NOT FOR IM USE) IV PRN ×4 (01:39→20:38)
[2019-06-01 04:00] VITALS: BP 147/80
[2019-06-01] MEDS: BLOOD SUGAR DIAGNOSTIC STRIP TEST SCH ×4 (05:28→20:31)
[2019-06-01 07:24] LABS: BASOPHILS % 0.6 % (0.0-2.0); EOSINOPHILS % 2.1 % (0.0-5.0); HEMOGLOBIN. 8.6 g/dL (12.0-16.0); LYMPHOCYTES % 26.5 % (20.0-50.0); MEAN CORPUSCULAR VOLUME 80.8 fL (81.0-99.0); MEAN PLATELET VOLUME 7.5 fl (7.4-10.4); MONOCYTES % 6.7 % (2.0-8.0); NEUTROPHILS % 64.1 % (40.0-76.0); PLATELET 483 x1000/uL (130-400); RED BLOOD CELL COUNT 3.18 mill/uL (4.2-5.4); RED CELL DISTRIBUTION WIDTH 13.1 % (11.6-14.6)
[2019-06-01 07:35] LABS: HEMATOCRIT. 25.7 % (36.0-48.0)
[2019-06-01 08:10] VITALS: BP 180/96
[2019-06-01] MEDS: INSULIN LISPRO 100 UNITS/ML SUBCUT SCH ×6 (08:43→20:31)
[2019-06-01] MEDS: AMLODIPINE 2.5MG TABLET PO SCH (08:45)
[2019-06-01] MEDS: CLONIDINE 0.1MG TABLET PO PRN (08:45)
[2019-06-01] MEDS: ENOXAPARIN 30MG/0.3ML SYR SUBCUT SCH (08:46)
[2019-06-01] MEDS: PIPERACILLIN/TAZOBACTAM 2.25 G in DEXTROSE 5% WATER 50 ML IV SCH ×2 (08:52→20:37)
[2019-06-01 11:39] VITALS: BP 162/84
[2019-06-01] MEDS ORDERED: HYDROCODONE/ACETAMINOPHEN 5/325MG TABLET PO PRN (12:00)
[2019-06-01] MEDS: ASPIRIN 81MG TABLET PO SCH (12:55)
[2019-06-01] MEDS: OXYCODONE HCL/ACETAMINOPHEN 5/325MG TABLET PO PRN (12:56)
[2019-06-01] MEDS: SODIUM CHLORIDE 0.9% 1,000 ML IV SCH ×2 (12:57→21:00)
[2019-06-01] MEDS ORDERED: VANCOMYCIN 750 MG in DEXT 5% WATER 250 ML IV SCH ×4 (13:00)
[2019-06-01] MEDS: CLONIDINE 0.2MG TABLET PO SCH ×2 (13:19→21:57)
[2019-06-01] MEDS: INSULIN GLARGINE UD 100 UNITS/ML SYR SUBCUT SCH ×2 (15:02→21:57)
[2019-06-01 16:12] VITALS: BP 148/77
[2019-06-01] MEDS: AMLODIPINE 5MG TABLET PO SCH (20:37)
[2019-06-01] MEDS: ATORVASTATIN CALCIUM 20MG TABLET PO SCH (20:37)
[2019-06-02] VITALS: BP 139/67
[2019-06-02] MEDS: MORPHINE SULFATE 2 MG/ML CPJ (NOT FOR IM USE) IV PRN ×3 (01:40→20:08)
[2019-06-02 04:00] VITALS: BP 143/78
[2019-06-02 06:02] LABS: BASOPHILS % 0.6 % (0.0-2.0); EOSINOPHILS % 2.6 % (0.0-5.0); HEMATOCRIT. 25.5 % (36.0-48.0); HEMOGLOBIN. 8.5 g/dL (12.0-16.0); LYMPHOCYTES % 32.4 % (20.0-50.0); MEAN CORPUSCULAR HEMOGLOBIN 27.3 pg (28.0-32.0); MEAN CORPUSCULAR VOLUME 81.5 fL (81.0-99.0); MEAN PLATELET VOLUME 7.4 fl (7.4-10.4); MONOCYTES % 6.3 % (2.0-8.0); NEUTROPHILS % 58.1 % (40.0-76.0); PLATELET 490 x1000/uL (130-400); RED BLOOD CELL COUNT 3.13 mill/uL (4.2-5.4); RED CELL DISTRIBUTION WIDTH 12.7 % (11.6-14.6)
[2019-06-02] MEDS: CLONIDINE 0.2MG TABLET PO SCH ×3 (06:14→22:17)
[2019-06-02] MEDS: INSULIN LISPRO 100 UNITS/ML SUBCUT SCH ×8 (06:21→21:00)
[2019-06-02] MEDS: BLOOD SUGAR DIAGNOSTIC STRIP TEST SCH ×4 (06:21→21:00)
[2019-06-02 08:00] VITALS: BP 143/77
[2019-06-02] MEDS: PIPERACILLIN/TAZOBACTAM 2.25 G in DEXTROSE 5% WATER 50 ML IV SCH (08:26)
[2019-06-02] MEDS: AMLODIPINE 5MG TABLET PO SCH ×2 (08:27→20:13)
[2019-06-02] MEDS: ASPIRIN 81MG TABLET PO SCH (08:27)
[2019-06-02] MEDS: ENOXAPARIN 30MG/0.3ML SYR SUBCUT SCH (08:28)
[2019-06-02] MEDS: OXYCODONE HCL/ACETAMINOPHEN 5/325MG TABLET PO PRN ×2 (08:28→16:46)
[2019-06-02] MEDS: INSULIN GLARGINE UD 100 UNITS/ML SYR SUBCUT SCH ×2 (10:08→22:23)
[2019-06-02 12:00] VITALS: BP 129/61
[2019-06-02] MEDS ORDERED: VANCOMYCIN 500 MG PREMIX 100 ML IV SCH (13:00)
[2019-06-02] MEDS: CLINDAMYCIN HCL 150MG CAPSULE PO SCH ×2 (14:49→22:17)
[2019-06-02 16:00] VITALS: BP 145/78
[2019-06-02] MEDS: SODIUM CHLORIDE 0.9% 1,000 ML IV SCH (16:46)
[2019-06-02 20:00] VITALS: BP 135/75
[2019-06-02] MEDS: ATORVASTATIN CALCIUM 20MG TABLET PO SCH (20:13)
[2019-06-02] MEDS ORDERED: SULFAMETHOXAZOLE/TRIMETHOPRIM 800/160MG TABLET PO SCH (21:00)
[2019-06-03] VITALS: BP 149/74
[2019-06-03 04:00] VITALS: BP 168/88
[2019-06-03] MEDS: MORPHINE SULFATE 2 MG/ML CPJ (NOT FOR IM USE) IV PRN ×2 (04:32→14:44)
[2019-06-03 05:50] LABS: BASOPHILS % 0.6 % (0.0-2.0); EOSINOPHILS % 2.5 % (0.0-5.0); HEMATOCRIT. 25.5 % (36.0-48.0); HEMOGLOBIN. 8.7 g/dL (12.0-16.0); LYMPHOCYTES % 29.5 % (20.0-50.0); MEAN CORPUSCULAR HEMOGLOBIN 27.6 pg (28.0-32.0); MEAN CORPUSCULAR VOLUME 81.2 fL (81.0-99.0); MEAN PLATELET VOLUME 7.5 fl (7.4-10.4); MONOCYTES % 5.4 % (2.0-8.0); PLATELET 528 x1000/uL (130-400); RED BLOOD CELL COUNT 3.14 mill/uL (4.2-5.4)
[2019-06-03] MEDS: CLINDAMYCIN HCL 150MG CAPSULE PO SCH ×3 (06:20→21:25)
[2019-06-03] MEDS: CLONIDINE 0.2MG TABLET PO SCH ×3 (06:20→21:24)
[2019-06-03] MEDS: BLOOD SUGAR DIAGNOSTIC STRIP TEST SCH ×4 (06:20→20:13)
[2019-06-03] MEDS: ONDANSETRON HCL 4MG/2ML INJ IV PRN ×3 (07:02→20:58)
[2019-06-03 08:00] VITALS: BP 169/93
[2019-06-03] MEDS: AMLODIPINE 5MG TABLET PO SCH ×3 (08:21→20:12)
[2019-06-03] MEDS: ASPIRIN 81MG TABLET PO SCH ×2 (08:21→08:34)
[2019-06-03] MEDS: ENOXAPARIN 30MG/0.3ML SYR SUBCUT SCH (08:22)
[2019-06-03] MEDS: INSULIN LISPRO 100 UNITS/ML SUBCUT SCH ×7 (08:23→21:24)
[2019-06-03] MEDS: INSULIN GLARGINE UD 100 UNITS/ML SYR SUBCUT SCH ×2 (10:32→21:24)
[2019-06-03 12:00] VITALS: BP 151/85
[2019-06-03] MEDS: SODIUM CHLORIDE 0.9% 1,000 ML IV SCH (12:12)
[2019-06-03] MEDS: CLONIDINE 0.1MG TABLET PO PRN (13:09)
[2019-06-03 16:00] VITALS: BP 141/80
[2019-06-03] MEDS: DOCUSATE SODIUM 100MG CAPSULE PO SCH (16:50)
[2019-06-03 20:00] VITALS: BP 149/75
[2019-06-03] MEDS: ATORVASTATIN CALCIUM 20MG TABLET PO SCH (20:11)
[2019-06-04] VITALS: BP 142/80
[2019-06-04] MEDS: MORPHINE SULFATE 2 MG/ML CPJ (NOT FOR IM USE) IV PRN ×2 (00:41→09:09)
[2019-06-04 04:00] VITALS: BP 149/66
[2019-06-04 06:41] LABS: BASOPHILS % 0.7 % (0.0-2.0); EOSINOPHILS % 1.9 % (0.0-5.0); HEMATOCRIT. 24.5 % (36.0-48.0); HEMOGLOBIN. 8.2 g/dL (12.0-16.0); LYMPHOCYTES % 29.6 % (20.0-50.0); MEAN CORPUSCULAR HEMOGLOBIN 27.3 pg (28.0-32.0); MEAN CORPUSCULAR VOLUME 81.2 fL (81.0-99.0); MEAN PLATELET VOLUME 7.4 fl (7.4-10.4); MONOCYTES % 4.9 % (2.0-8.0); NEUTROPHILS % 62.9 % (40.0-76.0); PLATELET 512 x1000/uL (130-400); RED BLOOD CELL COUNT 3.02 mill/uL (4.2-5.4); RED CELL DISTRIBUTION WIDTH 13.3 % (11.6-14.6)
[2019-06-04 06:48] VITALS: BP 150/81
[2019-06-04] MEDS: CLINDAMYCIN HCL 150MG CAPSULE PO SCH (06:49)
[2019-06-04] MEDS: BLOOD SUGAR DIAGNOSTIC STRIP TEST SCH ×2 (06:54→12:10)
[2019-06-04] MEDS: CLONIDINE 0.2MG TABLET PO SCH (06:54)
[2019-06-04] MEDS: ONDANSETRON HCL 4MG/2ML INJ IV PRN (07:00)
[2019-06-04] MEDS: ASPIRIN 81MG TABLET PO SCH (09:06)
[2019-06-04] MEDS: ENOXAPARIN 30MG/0.3ML SYR SUBCUT SCH (09:06)
[2019-06-04] MEDS: DOCUSATE SODIUM 100MG CAPSULE PO SCH (09:06)
[2019-06-04] MEDS: AMLODIPINE 5MG TABLET PO SCH (09:08)
[2019-06-04] MEDS: INSULIN LISPRO 100 UNITS/ML SUBCUT SCH ×4 (09:10→12:20)
[2019-06-04] MEDS: SODIUM CHLORIDE 0.9% 1,000 ML IV SCH (09:11)
[2019-06-04] MEDS: INSULIN GLARGINE UD 100 UNITS/ML SYR SUBCUT SCH (10:30)
[2019-06-04] MEDS ORDERED: OXYC-523 PO (12:48)
[2019-06-04 13:58] VITALS: BP 165/92
== END 2019-06-04 15:00 | disposition home or self-care (01) | DRG 710 ==
LOC: ER 21:24 → 6WST 05-30 02:11 → EDBEDREQ 05-30 02:15 → ENRESERV 05-30 07:26
PROVIDERS: ADMIT Internal Medicine; ATTEND Internal Medicine
PROC: 0Y6V0Z0 Detachment at Right 4th Toe, Complete, Open Approach (ICD-10-PCS; principal; 2019-05-31)
DX: A41.9 Sepsis, unspecified organism (principal); E10.22 Type 1 diabetes mellitus with diabetic chronic kidney disease; E10.52 Type 1 diabetes mellitus with diabetic peripheral angiopathy with gangrene; N17.9 Acute kidney failure, unspecified; E46 Unspecified protein-calorie malnutrition; K31.84 Gastroparesis; E10.42 Type 1 diabetes mellitus with diabetic polyneuropathy; L03.115 Cellulitis of right lower limb; N18.3 Chronic kidney disease, stage 3 (moderate); E78.5 Hyperlipidemia, unspecified; E10.65 Type 1 diabetes mellitus with hyperglycemia; E10.621 Type 1 diabetes mellitus with foot ulcer; Z59.0 Homelessness; T38.3X6A Underdosing of insulin and oral hypoglycemic [antidiabetic] drugs, initial encounter; N39.0 Urinary tract infection, site not specified; Z91.19 Patient's noncompliance with other medical treatment and regimen; I12.9 Hypertensive chronic kidney disease with stage 1 through stage 4 chronic kidney disease, or unspecified chronic kidney disease; D63.8 Anemia in other chronic diseases classified elsewhere; F17.210 Nicotine dependence, cigarettes, uncomplicated; L97.519 Non-pressure chronic ulcer of other part of right foot with unspecified severity; L97.529 Non-pressure chronic ulcer of other part of left foot with unspecified severity; Z21 Asymptomatic human immunodeficiency virus [HIV] infection status; D64.9 Anemia, unspecified; E10.43 Type 1 diabetes mellitus with diabetic autonomic (poly)neuropathy; E10.622 Type 1 diabetes mellitus with other skin ulcer; F10.11 Alcohol abuse, in remission; F16.11 Hallucinogen abuse, in remission; F19.10 Other psychoactive substance abuse, uncomplicated; Z79.4 Long term (current) use of insulin; Z91.14 Patient's other noncompliance with medication regimen; Z68.1 Body mass index [BMI] 19.9 or less, adult; Z79.899 Other long term (current) drug therapy; R79.89 Other specified abnormal findings of blood chemistry
CPT/HCPCS: 36415; 71045; 73630; 76770; 80048; 80053; 80061; 80202; 80305; 81003; 82010; 82550; 82962; 83036; 83605; 83735; 84100; 84145; 84443; 84484; 84703; 85025; 87070; 87075; 87077; 87186; 88304; 88305; 88311; 93005; 93306; 93923; 93971; 97162; 99291; J1650; J1815; J2250; J2270; J2405; J2543; J2795; J3370; J3490; J7030; J7060

== ENCOUNTER 2019-06-14 16:07 | Inpatient (IN) | payer MEDICAID ==
[~2019-06-14] VITALS: Ht 167.6 cm; Wt 55.8 kg
[~2019-06-14 16:07] MED LIST changes: -AMLO5TAB88 PO; +OXYC-523 PO
[2019-06-14] MEDS ORDERED: SODIUM CHLORIDE 0.9% 1,000 ML IV ONE ×2 (16:30→18:30)
[2019-06-14 18:03] LABS: HEMATOCRIT. 38.7 % (36.0-48.0); HEMOGLOBIN. 12.1 g/dL (12.0-16.0); MEAN CORPUSCULAR HEMOGLOBIN 27.2 pg (28.0-32.0); MEAN CORPUSCULAR VOLUME 86.7 fL (81.0-99.0); PLATELET 497 x1000/uL (130-400); RED BLOOD CELL COUNT 4.46 mill/uL (4.2-5.4); RED CELL DISTRIBUTION WIDTH 15.8 % (11.6-14.6)
[2019-06-14 18:12] LABS: HCG SCREEN NEGATIVE
[2019-06-14 18:13] LABS: CHLORIDE 92 mEq/L (98-107)
[2019-06-14 18:18] LABS: ETHANOL BLOOD < 10 mg/dL
[2019-06-14 18:22] LABS: BETA HYDROXYBUTYRATE 8.1 mMol/L (0.0-0.3)
[2019-06-14] MEDS ORDERED: MORPHINE SULFATE 2 MG/ML CPJ (NOT FOR IM USE) IV ONE (18:30)
[2019-06-14] MEDS ORDERED: ONDANSETRON HCL 4MG/2ML INJ IV ONE (18:30)
[2019-06-14] MEDS ORDERED: SODIUM CHLORIDE 0.9% 1,000 ML IV STA (18:33)
[2019-06-14] MEDS ORDERED: INSULIN REGULAR (DRIP) 100 UNITS in SODIUM CHLORIDE 0.9% 99 ML IV ONE ×2 (18:45→19:00)
[2019-06-14] MEDS ORDERED: LACTATED RINGERS 1,000 ML IV SCH (19:15)
[2019-06-14 19:32] LABS: CLARITY URINE CLEAR (CLEAR); COLOR URINE YELLOW (YELLOW); KETONES URINE 2+ (NEGATIVE); LEUKOCYTE ESTERASE URINE NEGATIVE (NEGATIVE); NITRITE URINE NEGATIVE (NEGATIVE); OCCULT BLOOD URINE 1+ (NEGATIVE); PROTEIN URINE 3+ (NEGATIVE); SPECIFIC GRAVITY URINE 1.023 (1.005-1.030); UROBILINOGEN URINE 0.2 E.U./dL (0.2-1.0)
[2019-06-14 19:44] LABS: PLATELET ESTIMATE INCREASED
[2019-06-14 21:28] VITALS: BP 157/72
[2019-06-14] MEDS ORDERED: MAGNESIUM 2 G PREMIX 50 ML IV PRN (21:30)
[2019-06-14] MEDS ORDERED: POTASSIUM CHLORIDE INJ 60 MEQ in DEXT 5% WATER 500 ML IV PRN (21:30)
[2019-06-14] MEDS ORDERED: DEXTROSE 50% WATER 50ML SYRINGE IV PRN ×2 (21:45)
[2019-06-14 21:58] VITALS: BP 151/81
[2019-06-14] MEDS ORDERED: INSULIN REGULAR (DRIP) 100 UNITS in SODIUM CHLORIDE 0.9% 99 ML IV PRN (22:00)
[2019-06-14] MEDS ORDERED: INSULIN REGULAR (DRIP) 100 UNITS in SODIUM CHLORIDE 0.9% 99 ML IV SCH (22:00)
[2019-06-14] MEDS ORDERED: METOCLOPRAMIDE HCL 10MG/2ML VIAL IV SCH (22:00)
[2019-06-14] MEDS ORDERED: POTASSIUM CHLORIDE INJ 40 MEQ in DEXT 5% WATER 500 ML IV PRN (22:00)
[2019-06-14] MEDS: METOCLOPRAMIDE HCL 10MG/2ML VIAL IV PRN (22:07)
[2019-06-14] MEDS: SODIUM CHLORIDE 0.45% 1,000 ML IV SCH (22:07)
[2019-06-14] MEDS: BLOOD SUGAR DIAGNOSTIC STRIP TEST SCH ×2 (22:07→23:18)
[2019-06-14] MEDS: MORPHINE SULFATE 2 MG/ML CPJ (NOT FOR IM USE) IV PRN (22:20)
[2019-06-14 22:29] VITALS: BP 176/77
[2019-06-14] MEDS: HYDRALAZINE 20MG/ML VIAL IV PRN (22:38)
[2019-06-14 22:53] VITALS: BP 176/79
[2019-06-14 22:58] VITALS: BP 166/72
[2019-06-14 23:28] VITALS: BP 161/66
[2019-06-15] VITALS (33 sets, daily range): BP systolic 115–166; BP diastolic 47–90
[2019-06-15] MEDS: BLOOD SUGAR DIAGNOSTIC STRIP TEST SCH ×20 (00:46→21:33)
[2019-06-15] MEDS: MORPHINE SULFATE 2 MG/ML CPJ (NOT FOR IM USE) IV PRN ×3 (03:58→19:32)
[2019-06-15 04:36] LABS: HEMATOCRIT 29.1 % (36.0-48.0); HEMOGLOBIN 9.9 g/dL (12.0-16.0); MEAN CORPUSCULAR HEMOGLOBIN 27.7 pg (28.0-32.0); MEAN CORPUSCULAR VOLUME 81.8 fL (81.0-99.0); PLATELET 433 x1000/uL (130-400); RED BLOOD CELL COUNT 3.56 mill/uL (4.2-5.4)
[2019-06-15] MEDS: SODIUM CHLORIDE 0.45% 1,000 ML IV SCH (06:50)
[2019-06-15] MEDS: ENOXAPARIN 30MG/0.3ML SYR SUBCUT SCH (08:18)
[2019-06-15] MEDS: PANTOPRAZOLE SODIUM 40 MG/VIAL IV SCH (08:18)
[2019-06-15] MEDS: DEXT 5%/0.45% NACL 1000ML 1,000 ML IV SCH ×2 (09:50→18:03)
[2019-06-15] MEDS ORDERED: DEXTROSE 50% WATER 50ML SYRINGE IV PRN (16:15)
[2019-06-15] MEDS: INSULIN GLARGINE UD 100 UNITS/ML SYR SUBCUT SCH (16:43)
[2019-06-15] MEDS: INSULIN LISPRO 100 UNITS/ML SUBCUT SCH ×3 (17:34→21:00)
[2019-06-16] VITALS (23 sets, daily range): BP systolic 138–178; BP diastolic 60–107
[2019-06-16] MEDS: DEXT 5%/0.45% NACL 1000ML 1,000 ML IV SCH ×2 (00:47→09:41)
[2019-06-16] MEDS: MORPHINE SULFATE 2 MG/ML CPJ (NOT FOR IM USE) IV PRN ×3 (00:52→20:32)
[2019-06-16 04:25] LABS: PHOSPHORUS 3.7 mg/dL (2.5-4.9)
[2019-06-16 05:39] LABS: BASOPHILS % 1.2 % (0.0-2.0); EOSINOPHILS % 0.9 % (0.0-5.0); HEMATOCRIT. 27.2 % (36.0-48.0); HEMOGLOBIN. 9.1 g/dL (12.0-16.0); LYMPHOCYTES % 37.8 % (20.0-50.0); MEAN CORPUSCULAR HEMOGLOBIN 27.5 pg (28.0-32.0); MEAN PLATELET VOLUME 7.3 fl (7.4-10.4); NEUTROPHILS % 55.1 % (40.0-76.0); PLATELET 353 x1000/uL (130-400); RED BLOOD CELL COUNT 3.32 mill/uL (4.2-5.4)
[2019-06-16] MEDS: HYDRALAZINE 20MG/ML VIAL IV PRN ×2 (06:32→13:35)
[2019-06-16] MEDS: BLOOD SUGAR DIAGNOSTIC STRIP TEST SCH ×4 (08:06→20:40)
[2019-06-16] MEDS: PANTOPRAZOLE SODIUM 40 MG/VIAL IV SCH (08:24)
[2019-06-16] MEDS: ENOXAPARIN 30MG/0.3ML SYR SUBCUT SCH (08:24)
[2019-06-16] MEDS: INSULIN LISPRO 100 UNITS/ML SUBCUT SCH ×7 (08:25→20:40)
[2019-06-16] MEDS: INSULIN GLARGINE UD 100 UNITS/ML SYR SUBCUT SCH (09:55)
[2019-06-16] MEDS: SODIUM CHLORIDE 0.9% 1,000 ML IV SCH (10:00)
[2019-06-16] MEDS: HYDRALAZINE 10 MG in SODIUM CHLORIDE 0.9% 49.5 ML IV PRN (21:53)
[2019-06-17] VITALS (7 sets, daily range): BP systolic 156–179; BP diastolic 66–96
[2019-06-17] MEDS: SODIUM CHLORIDE 0.9% 1,000 ML IV SCH (00:18)
[2019-06-17] MEDS: HYDRALAZINE 10 MG in SODIUM CHLORIDE 0.9% 49.5 ML IV PRN ×2 (01:43→16:42)
[2019-06-17] MEDS: MORPHINE SULFATE 2 MG/ML CPJ (NOT FOR IM USE) IV PRN ×3 (01:48→17:11)
[2019-06-17 06:20] LABS: BASOPHILS % 0.8 % (0.0-2.0); EOSINOPHILS % 1.2 % (0.0-5.0); HEMATOCRIT. 29.4 % (36.0-48.0); HEMOGLOBIN. 9.7 g/dL (12.0-16.0); LYMPHOCYTES % 34.7 % (20.0-50.0); MEAN CORPUSCULAR HEMOGLOBIN 26.9 pg (28.0-32.0); MEAN CORPUSCULAR VOLUME 81.4 fL (81.0-99.0); MEAN PLATELET VOLUME 7.4 fl (7.4-10.4); MONOCYTES % 7.1 % (2.0-8.0); NEUTROPHILS % 56.2 % (40.0-76.0); PLATELET 305 x1000/uL (130-400); RED BLOOD CELL COUNT 3.62 mill/uL (4.2-5.4); RED CELL DISTRIBUTION WIDTH 14.5 % (11.6-14.6)
[2019-06-17] MEDS: BLOOD SUGAR DIAGNOSTIC STRIP TEST SCH ×4 (06:32→21:35)
[2019-06-17] MEDS: INSULIN LISPRO 100 UNITS/ML SUBCUT SCH ×7 (06:37→21:00)
[2019-06-17] MEDS: PANTOPRAZOLE SODIUM 40 MG/VIAL IV SCH (08:21)
[2019-06-17] MEDS: ENOXAPARIN 30MG/0.3ML SYR SUBCUT SCH (08:21)
[2019-06-17] MEDS: INSULIN GLARGINE UD 100 UNITS/ML SYR SUBCUT SCH (10:26)
[2019-06-17] MEDS: LOSARTAN POTASSIUM 50 MG TABLET PO SCH (13:55)
[2019-06-17] MEDS: ATORVASTATIN CALCIUM 20MG TABLET PO SCH (21:36)
[2019-06-18] VITALS: BP 143/70
[2019-06-18 04:00] VITALS: BP 144/78
[2019-06-18] MEDS: BLOOD SUGAR DIAGNOSTIC STRIP TEST SCH ×3 (06:20→21:00)
[2019-06-18 08:00] VITALS: BP 162/85
[2019-06-18] MEDS: ASPIRIN 81MG TABLET PO SCH (09:44)
[2019-06-18] MEDS: LOSARTAN POTASSIUM 50 MG TABLET PO SCH (09:44)
[2019-06-18] MEDS: PANTOPRAZOLE SODIUM 40 MG/VIAL IV SCH (09:44)
[2019-06-18] MEDS: ENOXAPARIN 30MG/0.3ML SYR SUBCUT SCH (09:45)
[2019-06-18] MEDS: MORPHINE SULFATE 2 MG/ML CPJ (NOT FOR IM USE) IV PRN ×4 (10:01→21:50)
[2019-06-18] MEDS: INSULIN GLARGINE UD 100 UNITS/ML SYR SUBCUT SCH (10:54)
[2019-06-18 12:00] VITALS: BP 158/90
[2019-06-18] MEDS: INSULIN LISPRO 100 UNITS/ML SUBCUT SCH ×2 (12:30→22:15)
[2019-06-18] MEDS: METOCLOPRAMIDE HCL 10MG/2ML VIAL IV PRN (13:07)
[2019-06-18 16:00] VITALS: BP 135/80
[2019-06-18 20:00] VITALS: BP 143/79
[2019-06-18] MEDS: ATORVASTATIN CALCIUM 20MG TABLET PO SCH (21:50)
[2019-06-19] VITALS: BP 153/88
[2019-06-19] MEDS: MORPHINE SULFATE 2 MG/ML CPJ (NOT FOR IM USE) IV PRN ×4 (02:40→21:31)
[2019-06-19] MEDS: SODIUM CHLORIDE 0.9% 1,000 ML IV SCH ×2 (02:50→17:54)
[2019-06-19 04:00] VITALS: BP 155/80
[2019-06-19] MEDS: BLOOD SUGAR DIAGNOSTIC STRIP TEST SCH ×4 (06:37→20:44)
[2019-06-19] MEDS: INSULIN LISPRO 100 UNITS/ML SUBCUT SCH ×7 (07:50→20:44)
[2019-06-19 08:00] VITALS: BP 164/88
[2019-06-19] MEDS: PANTOPRAZOLE SODIUM 40 MG/VIAL IV SCH (08:48)
[2019-06-19] MEDS: LOSARTAN POTASSIUM 50 MG TABLET PO SCH (08:49)
[2019-06-19] MEDS: ENOXAPARIN 30MG/0.3ML SYR SUBCUT SCH (08:49)
[2019-06-19] MEDS: ASPIRIN 81MG TABLET PO SCH (08:49)
[2019-06-19] MEDS: INSULIN GLARGINE UD 100 UNITS/ML SYR SUBCUT SCH (10:24)
[2019-06-19 12:00] VITALS: BP 150/90
[2019-06-19 16:00] VITALS: BP 149/84
[2019-06-19 20:00] VITALS: BP 134/70
[2019-06-19] MEDS: ATORVASTATIN CALCIUM 20MG TABLET PO SCH (21:30)
[2019-06-20] VITALS: BP 139/75
[2019-06-20] MEDS ORDERED: HYDROCODONE/ACETAMINOPHEN 5/325MG TABLET PO PRN (01:45)
[2019-06-20 04:00] VITALS: BP 137/76
[2019-06-20] MEDS: SODIUM CHLORIDE 0.9% 1,000 ML IV SCH (06:32)
[2019-06-20] MEDS: INSULIN LISPRO 100 UNITS/ML SUBCUT SCH ×2 (06:39→06:40)
[2019-06-20] MEDS: BLOOD SUGAR DIAGNOSTIC STRIP TEST SCH (06:39)
[2019-06-20 08:00] VITALS: BP 164/90
[2019-06-20] MEDS: LOSARTAN POTASSIUM 50 MG TABLET PO SCH (08:26)
[2019-06-20] MEDS: ASPIRIN 81MG TABLET PO SCH (08:26)
[2019-06-20] MEDS: ENOXAPARIN 30MG/0.3ML SYR SUBCUT SCH (08:28)
[2019-06-20] MEDS ORDERED: FAMOTIDINE 20MG TABLET PO SCH (09:00)
[2019-06-20] MEDS: INSULIN GLARGINE UD 100 UNITS/ML SYR SUBCUT SCH (10:01)
[2019-06-20 10:08] VITALS: BP 164/90
== END 2019-06-20 10:50 | disposition home or self-care (01) | DRG 420 ==
LOC: ER 16:07 → CVICU 18:47 → EDBEDREQSVC 18:55 → EDBEDREQ 18:55 → ENRESERV 19:38 → 6EST 06-16 18:03
PROVIDERS: ADMIT Internal Medicine; ATTEND Internal Medicine
DX: E10.10 Type 1 diabetes mellitus with ketoacidosis without coma (principal); E10.621 Type 1 diabetes mellitus with foot ulcer; N17.9 Acute kidney failure, unspecified; E10.22 Type 1 diabetes mellitus with diabetic chronic kidney disease; N18.3 Chronic kidney disease, stage 3 (moderate); L97.529 Non-pressure chronic ulcer of other part of left foot with unspecified severity; I12.9 Hypertensive chronic kidney disease with stage 1 through stage 4 chronic kidney disease, or unspecified chronic kidney disease; T38.3X6A Underdosing of insulin and oral hypoglycemic [antidiabetic] drugs, initial encounter; Y92.89 Other specified places as the place of occurrence of the external cause; Z59.0 Homelessness; Z89.421 Acquired absence of other right toe(s)
CPT/HCPCS: 36415; 80048; 80053; 80320; 81003; 82010; 82962; 83036; 83735; 84100; 84703; 85025; 85027; 93005; 99291; C9113; J0360; J1650; J1815; J2270; J2405; J2765; J7030; J7050; G0480